=== PATIENT | female | born 1995 | race Caucasian/White ===

== ENCOUNTER 2024-12-18 16:21 | Emergency (ER) | payer OTHER, SELFPAY ==
[2024-12-18 16:24] VITALS: BP 148/78
[2024-12-18 16:40] LABS: Hematocrit 37.0 % (37.0-47.0); Hemoglobin 12.4 g/dL (12.0-16.0); Mean Corp Hgb Conc. 33.5 g/dL (33.0-37.0); Mean Corpuscular Volume 92.0 fL (81.0-99.0); Nucleated Red Blood Cells % 0 %; Platelet Count 295 10^3/uL (130-400); Red Cell Dist. Width 13.0 % (11.5-14.5)
[2024-12-18 16:43] LABS: Urine Character Cloudy (Clear)
[2024-12-18 16:59] LABS: Urine Red Blood Cell >100 /HPF (0-2); Urine Squamous Cell 0-2 /LPF (Few)
[2024-12-18 17:44] VITALS: BMI 26.4
[2024-12-18] MEDS: NSS 1000 IV (17:45)
[2024-12-18] MEDS: ZOFRAN 4 MG IV (17:46)
[2024-12-18] MEDS: TORADOL 15 MG IV (17:46)
[2024-12-18 18:31] LABS: HCG, Serum Qualitative Screen Negative
[2024-12-18 19:07] LABS: ALT (SGPT) 17 U/L (0-35); AST (SGOT) 19 U/L (14-36); Albumin 4.8 g/dl (3.5-5.0); Alkaline Phosphatase 51 U/L (38-126); Blood Urea Nitrogen 20 mg/dl (7-17); Calcium 9.7 mg/dl (8.4-10.2); Carbon Dioxide 27 mmol/L (22-30); Chloride 107 mmol/L (98-107); Estimated Creatinine Clearance 96 ml/min; Glucose 100 mg/dl (70-99); Potassium 4.1 mmol/L (3.5-5.1); Sodium 141 mmol/L (135-145); Total Protein 7.8 g/dl (6.3-8.2); eGFR > 60.00
[2024-12-18] MEDS: ROXICODONE 5 MG PO (20:27)
[2024-12-18] MEDS: FLOMAX 0.4 MG PO (20:28)
--- NOTE | 2024-12-18 21:23 | ED.GENMED ---
History of Present Illness
General
Chief Complaint: Flank Pain
Source: patient
Exam Limitations: none
Time Seen by Provider: 12/18/24 17:27
Nursing documentation reviewed up to this point in time: agreed with
History of Present Illness
History of Present Illness:
Patient is a 29-year-old female who presents to the emergency department for evaluation of acute onset right flank pain which began while she was driving home from work a few hours ago. She describes a sharp pain in her right flank radiating into
the right lower abdomen. She has had multiple episodes of vomiting since onset of pain. No fever, diarrhea, anorexia, dysuria, or hematuria. No chest pain or shortness of breath.
No history of similar symptoms.
Review of Systems
Review of Systems
Allergies reviewed?: Yes
All Other Systems: ROS reviewed and negative except as documented in HPI and ROS
Phy Exam
Physical Exam
Physical Exam:
Vitals: Hypertensive, otherwise vital signs stable. Afebrile.
General: Patient is actively retching and uncomfortable appearing on initial evaluation.
Skin: Warm and dry, no rashes or lesions
Head: Normocephalic, atraumatic
Eyes: Sclera nonicteric.
Throat: Protecting airway
Neck: Normal ROM, no cervical spine tenderness, no meningismus
Cardiac: Regular rate and rhythm, no murmurs.
Pulm: Normal respiratory effort, no wheezes, rales, rhonchi heard on exam
.
Abdomen: Abdomen soft and nontender. No CVA tenderness
Extremities: No evidence of cyanosis or edema
Neuro: AAOx3. Grossly intact
Psychiatric: Normal affect.
Course
Orders/Labs/Results
Orders:
Orders
12/18/24 16:32
Complete Blood Count/With Diff Urgent
Comprehensive Metabolic Panel Urgent
HCG, Serum Qualitative Screen Urgent
Comment: ADD ON
Urine Microscopic Reflex Cult Urgent
Urine Reflex Culture from UA [Urinalysis Reflex To Culture] Urgent
Date Specimen was Collected: 12/18/24
Time Specimen was Collected: 16:26
Urine Culture Urgent
DULCE Source: U
Specimen Description:
Date Specimen was Collected: 12/18/24
Time Specimen was Collected: 16:26
12/18/24 17:35
Add On- LAB Urgent
Tests Added?: serum hcg
Abdomen/Pelvis wo Contrast CT [CT Abd/pelvis Wo Iv Cont] Urgent
Comment:
Reason For Exam: R flank pain
0.9% Sodium Chloride 1000 ml [Nss] 1,000 ml IV BOLUS
Ketorolac [Toradol] 15 mg IV NOW STA
Ondansetron Injectable [Zofran] 4 mg IV NOW STA
12/18/24 20:14
Oxycodone [Roxicodone] 5 mg PO NOW STA
Tamsulosin [Flomax] 0.4 mg PO NOW STA
Abnormal Lab Results
12/18/24
16:32
RBC 4.02 L 10^6/uL
(4.20-5.40)
Absolute Monos (auto) 0.7 H 10^3/uL
(0.1-0.6)
BUN 20 H mg/dl
(7-17)
Glucose 100 H mg/dl
(70-99)
Urine Ketones 1+ A
(Negative)
Ur Occult Blood Reflex 4+ A
(Negative)
Leukocyte Esterase Rfl 1+ A
(Negative)
Urine RBC >100 A /HPF
(0-2)
Urine Bacteria (Reflex) Moderate A
(Negative)
Urine Albumin (Reflex) 3+ A
(Neg - Trace)
12/18/24 16:32
12/18/24 16:32
Vital Signs
Initial and Last Documented VS:
Initial Vital Signs
Temp Pulse Resp BP Pulse Ox
98.0 F 56 20 148/78 99
12/18/24 16:24 12/18/24 16:24 12/18/24 16:24 12/18/24 16:24 12/18/24 16:24
Last Documented Vital Signs
Temp Pulse Resp BP Pulse Ox
98.0 F 56 20 148/78 99
12/18/24 16:24 12/18/24 16:24 12/18/24 16:24 12/18/24 16:24 12/18/24 21:24
MDM/Problems Addressed
Differential Diagnosis Includes:
Not limited to: renal colic, pyelonephritis, appendicitis, muscle spasm, diverticulitis, etc
MDM/Problems Addressed:
29 year old female with acute onset right flank pain associated with multiple episodes of vomiting. No fevers or anorexia. Vitals and physical exam reassuring. CT shows 2.7mm ureteral calculus at right UVJ. Labs reassuring without any evidence of
renal insufficiency. UA does not indicate acute infection. Patient has had near complete improvement in pain after symptomatic tx in ED with toradol.
Workup consistent with renal colic from obstructing UVJ stone. No evidence of infection. CT did mention right ovarian cyst and cholelithiasis which I do not suspect to be contributing to patients symptoms today. She was made aware and will follow
these outpatient.
Pain well controlled here. Will discharge home with pain management, urology f/u and strict return precautions. Patient comfortable w/ plan.
Chronic conditions affecting care:
N/A
Acute Exacerbation and/or Progression of Chronic Illness:
N/A
*Radiology
Radiology exam reviewed: radiology read reviewed
*Pulse Oximetry
SaO2: 99
Oxygen Mode of Delivery: Room air
Patient hypoxic: no
*EKG
Interpreted by ED Provider?: NA
*Furniture Duster Interpretation
Rate: Furniture Duster- N/A
*Critical Care Note
Total Time (30-74mins, 75-104mins- exclusive of procedures): Not Applicable
ED Attending Note
-
Portions of this chart may have been created with voice recognition software.� Occasional wrong word or��sound alike� substitutions may have occurred due to the inherent limitations of voice recognition software.
Discharge Plan
Departure
Patient Disposition: Home (Routine Discharge)
Date of Disposition: 12/18/24
Time of Disposition: 20:16
Patient with high blood pressure during this ER visit?: Yes
Condition: Good
Discharge Problem:
Calculus of ureterovesical junction (UVJ)
Instructions: Kidney Stones (DC), Flank Pain (DC), BLOOD PRESSURE
Prescriptions:
New
tamsulosin 0.4 mg capsule
0.4 mg PO DAILY Qty: 14 0RF
oxycodone 5 mg tablet
5 mg PO Q6H PRN (Reason: Pain) Qty: 7 0RF
ondansetron 4 mg tablet,disintegrating
4 mg PO Q8H PRN (Reason: nausea and vomiting) Qty: 10 0RF
Referrals:
Daysi Wu CRNP [Family Provider]
Miguel Grace MD [Active, Urology] - Next open appointment
Activity Restrictions/Additional Instructions:
RETURN TO THE EMERGENCY DEPARTMENT ANY FEVERS, INTRACTABLE PAIN, INTRACTABLE NAUSEA/VOMITING, DIFFICULTIES URINATING, WORSENING IN CURRENT SYMPTOMS, OR ANY OTHER CONCERNS
- As discussed�your CT scan showed a 2.7 mm stone at your right ureterovesicular junction. You were also found to have a right sided ovarian cyst and gallstones. I suspect your symptoms today are likely due to the kidney stone.
- For pain management, please take 600 mg of ibuprofen every 6-8 hours. You can take Tylenol as needed. A prescription for oxycodone has been sent to your pharmacy which you can take for intractable pain. This may cause drowsiness you should not
take prior to driving.
- It is important stay well-hydrated. Take Flomax daily until you pass the stone.
- Follow-up with urology for further evaluation/management and to ensure that your symptoms are improving.
Monitor your symptoms closely and return to the emergency department with any acute worsening/new symptoms or any other concerns
Interventions
Interventions:
*Risk Screen - Suicide Last Done: 12/18/24 17:45
*General Assessment Last Done: 12/18/24 16:24
*Neglect/Abuse Screening Last Done: 12/18/24 17:45
*ED- Fall Risk Assessment Last Done: 12/18/24 17:45
*ED COVID-19 Vaccine History Last Done: 12/18/24 17:45
*ED Influenza Vaccine History Last Done: 12/18/24 17:45
*Nursing Disposition Last Done: 12/18/24 20:33
AO-Fejbev-Orikfsaoux Assessment Last Done: 12/18/24 17:46
ED-Female Genitourinary Assessment Last Done: 12/18/24 17:46
Discharge Date and Time
Discharge Date/Time: 12/18/24 20:35
Print Language: ARMENIAN
== END 2024-12-18 20:35 | disposition home or self-care (01) ==
LOC: EMR 16:21
PROVIDERS: Emergency Medicine; EMERGENCY PHYSICIAN Emergency Medicine; FAMILY PHYSICIAN Nurse Practitioner Primary Care
DX: N20.1 Calculus of ureter (principal); N83.201 Unspecified ovarian cyst, right side; K80.20 Calculus of gallbladder without cholecystitis without obstruction; R11.0 Nausea
CPT/HCPCS: 96374; 96375; 96361; 99284; 74176; 80053; 81003; 81015; 84703; 85025; 87086